=== PATIENT | male | born 1960 | race Caucasian/White ===

== ENCOUNTER 2023-08-05 17:04 | Emergency (ER) | payer BC, OTHER ==
[~2023-08-05] VITALS: Ht 167.6 cm; Wt 77.1 kg
[2023-08-05 18:15] VITALS: BP_SYST 144; PULSE 71; RESP 18; TEMP 97.5; O2SAT 96
[2023-08-05] MEDS ORDERED: KETOROLAC TROMETHAMINE 60 MG/2 ML VIAL IM ONE (19:30)
[2023-08-05] MEDS ORDERED: IBUP-1969 PO (20:48)
[2023-08-05] MEDS ORDERED: HYDR-3917 PO (20:48)
[2023-08-05] MEDS ORDERED: HYDROcodone/ACETAMIN 5-325 MG TAB (NORCO/ VICODIN) PO ONE (21:00)
[2023-08-05 21:10] VITALS: BP_SYST 144; PULSE 71; RESP 18; TEMP 97.5; O2SAT 96
== END 2023-08-05 21:10 | disposition home or self-care (01) ==
LOC: SED 17:04
DX: S76.811A Strain of other specified muscles, fascia and tendons at thigh level, right thigh, initial encounter (principal); M54.30 Sciatica, unspecified side; Z79.899 Other long term (current) drug therapy; W01.0XXA Fall on same level from slipping, tripping and stumbling without subsequent striking against object, initial encounter; Y93.E1 Activity, personal bathing and showering; Y92.89 Other specified places as the place of occurrence of the external cause; Y99.8 Other external cause status
CPT/HCPCS: 99285; 72131; 72170; 76376; 96372; J1885